=== PATIENT | female | born 1975 | race Caucasian/White ===

== ENCOUNTER 2022-01-03 20:22 | Emergency (ER) | payer OTHER ==
[~2022-01-03] VITALS: Ht 154.9 cm; Wt 59.0 kg
[2022-01-03 20:24] VITALS: BP 167/100
[2022-01-03] MEDS ORDERED: ONDANSETRON HCL 4MG/2ML INJ ONE (20:50)
[2022-01-03] MEDS ORDERED: SODIUM CHLORIDE 0.9% 1,000 ML IV ONE (21:45)
[2022-01-03] MEDS ORDERED: FAMOTIDINE 20MG/2ML VIAL IV ONE (21:45)
[2022-01-03] MEDS ORDERED: METOCLOPRAMIDE HCL 10MG/2ML VIAL IV ONE (21:45)
[2022-01-03 22:10] LABS: HEMATOCRIT. 38.1 % (36.0-48.0); HEMOGLOBIN. 12.7 g/dL (12.0-16.0); MEAN CORPUSCULAR HEMOGLOBIN 30.2 pg (28.0-32.0); MEAN CORPUSCULAR VOLUME 90.9 fL (81.0-99.0); MEAN PLATELET VOLUME 8.3 fl (7.4-10.4); PLATELET 225 x1000/uL (130-400); RED BLOOD CELL COUNT 4.19 mill/uL (4.2-5.4); RED CELL DISTRIBUTION WIDTH 13.8 % (11.6-14.6)
[2022-01-03 22:21] LABS: INR 1.1; PROTHROMBIN TIME 11.4 sec (9.6-11.0)
[2022-01-03 22:22] LABS: CHLORIDE 110 mEq/L (98-107)
[2022-01-03] MEDS: FAMOTIDINE 20MG/2ML VIAL IV NR ×2 (22:35→22:44)
[2022-01-03 22:43] LABS: PLATELET ESTIMATE NORMAL
[2022-01-04] MEDS ORDERED: ONDA4TAB11 PO (00:09)
== END 2022-01-04 00:25 | disposition home or self-care (01) ==
LOC: ER 20:22
DX: R10.84 Generalized abdominal pain (principal); R11.2 Nausea with vomiting, unspecified; R19.7 Diarrhea, unspecified
CPT/HCPCS: 36415; 80053; 81025; 83690; 85025; 85610; 96361; 96374; 96375; 99284; J2405; J2765; J3490; J7030